=== PATIENT | female | born 1985 | race Caucasian/White ===

== ENCOUNTER 2017-01-02 20:41 | Emergency (ER) | payer MEDICAID, OTHER ==
[~2017-01-02 20:41] MED LIST: Z.0.NO CURRENT MEDS
[2017-01-02] MEDS ORDERED: IOHEXOL 350 MG/ML 10 ML VIAL (for RAD DIAG) IVCONTRAST ONE (20:42)
[2017-01-02 20:43] VITALS: BP 156/93; PULSE 123; RESP 16; TEMP 99; O2SAT 96
[2017-01-02] MEDS ORDERED: PANTOPRAZOLE INJ 80 MG in SODIUM CHLORIDE 0.9% INJ 100 ML IV SCH (21:28)
[2017-01-02] MEDS ORDERED: PANTOPRAZOLE INJ 80 MG in SODIUM CHLORIDE 0.9% INJ 35 ML IV ONE (21:28)
[2017-01-02] MEDS ORDERED: SODIUM CHLORIDE 0.9% FLUSH 10 ML FLUSH IVF PRN (21:30)
--- NOTE | 2017-01-02 21:43 | PD ---
HPI . Rectal bleeding Chief Complaint: GI Complaint Time Seen by Provider: 21:28 Travel History International Travel<30 days: No Contact w/Intl Traveler<30days: No Traveled to known affect area: No History of Present Illness HPI This patient presents with for evaluation of rectal bleeding. The patient reports that she has had intermittent problems since 2009. She was seen a couple of months ago by Dr. Nelson for routine LOAN SERVICING SPECIALIST care. She mentioned the rectal bleeding to Dr. Nelson who did a rectal exam and found no blood. The patient states that she was at a soccer game tonight when blood started pouring out of her rectum. She states that she does feel a bit weak and dizzy now. She denies any associated abdominal pain. She denies any hematemesis. She has not been running a fever. She is unaware of any causative factor. She states that the bleeding was severe. PFSH Past Medical History Inguinal Hernia: Yes Reproductive: Yes (endometriosis) Integumentary: Yes (MRSA) ?: Not LMP: "2 MONTHS", MIRENA : 3 Para: 3 Past Surgical History Abdominal Surgery: Yes (hernia repair) Gynecologic Surgery: Yes (LAPROSCOPY) Social History Alcohol Use: No Tobacco Use: No Substance Use: No (STATES "I'M IN RECOVERY") Allergies-Medications (Allergen,Severity, Reaction): Coded Allergies: ciprofloxacin (Unverified Allergy, Mild, HIVES, 01/02/17) Uncoded Allergies: NARCOTICS (Adverse Reaction, Unknown, 05/26/10) DOES NOT WISH TO RECEIVE NARCOTICS-STATES "I'M IN RECOVERY" Reported Meds & Prescriptions Reported Meds & Active Scripts Active No Active Prescriptions or Reported Medications Review of Systems Except as stated in HPI: all other systems reviewed are Neg General / Constitutional: No: Fever, Chills HENT: Positive: Lightheadedness, No: Headaches Cardiovascular: No: Chest Pain or Discomfort Respiratory: No: Shortness of Breath Gastrointestinal: Positive: Hematochezia, No: Nausea, Vomiting, Abdominal Pain Genitourinary: No: Urgency, Frequency, Dysuria Physical Exam Narrative GENERAL: Pleasant, healthy-appearing young woman in no acute distress. SKIN: warm/dry. HEAD: Normocephalic. Atraumatic. EYES: Pupils equal and round. No scleral icterus. No injection or drainage. ENT: No nasal bleeding or discharge. Mucous membranes pink and moist. NECK: Trachea midline. Full range of motion without pain.. CARDIOVASCULAR: Regular rate and rhythm. Heart sounds are normal. RESPIRATORY: No accessory muscle use. Clear to auscultation. Breath sounds equal bilaterally. GASTROINTESTINAL: Abdomen soft. Nontender. Bowel sounds present. Nondistended. RECTAL: Gross blood on her anus. MUSCULOSKELETAL: No obvious deformities. NEUROLOGICAL: Awake and alert. No obvious cranial nerve deficits. Motor grossly within normal limits. Normal speech. PSYCHIATRIC: Appropriate mood and affect; insight and judgment normal. Data Data Last Documented VS Vital Signs Date Time Temp Pulse Resp B/P (MAP) Pulse Ox O2 Delivery O2 Flow Rate FiO2 01/02/17 20:43 99.0 123 16 156/93 (114) 96 Room Air Orders Orders Basic Metabolic Panel (Bmp) (01/02/17 21:28) Complete Blood Count With Diff (01/02/17 21:28) Prothrombin Time / Inr (Pt) (01/02/17 21:28) Act Partial Throm Time (Ptt) (01/02/17 21:28) Type And Screen (01/02/17 21:28) Iv Access Insert/Monitor (01/02/17 21:28) Sodium Chloride 0.9% Flush (Ns Flush) (01/02/17 21:30) Sodium Chloride 0.9... W/Pantoprazole In (01/02/17 21:28) Sodium Chloride 0.9... W/Pantoprazole In (01/02/17 21:28) Ct Abd/Pel W Iv Contrast(Rout) (01/02/17 21:28) Consult Obstetrics (01/02/17 ) (Hub Use Only)Inp Phy Cons/Ref (01/02/17 ) Iohexol 350 Inj (Omnipaque 350 Inj) (01/02/17 20:42) Labs Laboratory Tests Test 01/02/17 21:45 White Blood Count 7.9 TH/MM3 Red Blood Count 4.49 MIL/MM3 Hemoglobin 13.8 GM/DL Hematocrit 40.4 % Mean Corpuscular Volume 90.0 FL Mean Corpuscular Hemoglobin 30.8 PG Mean Corpuscular Hemoglobin Concent 34.2 % Red Cell Distribution Width 13.3 % Platelet Count 196 TH/MM3 Mean Platelet Volume 9.8 FL Neutrophils (%) (Auto) 59.5 % Lymphocytes (%) (Auto) 30.5 % Monocytes (%) (Auto) 8.5 % Eosinophils (%) (Auto) 0.9 % Basophils (%) (Auto) 0.6 % Neutrophils # (Auto) 4.7 TH/MM3 Lymphocytes # (Auto) 2.4 TH/MM3 Monocytes # (Auto) 0.7 TH/MM3 Eosinophils # (Auto) 0.1 TH/MM3 Basophils # (Auto) 0.0 TH/MM3 CBC Comment DIFF FINAL Differential Comment Prothrombin Time 11.5 SEC Prothromb Time International Ratio 1.0 RATIO Activated Partial Thromboplast Time 26.4 SEC Blood Urea Nitrogen 8 MG/DL Creatinine 0.71 MG/DL Random Glucose 81 MG/DL Calcium Level 9.0 MG/DL Sodium Level 139 MEQ/L Potassium Level 3.8 MEQ/L Chloride Level 102 MEQ/L Carbon Dioxide Level 28.4 MEQ/L Anion Gap 9 MEQ/L Estimat Glomerular Filtration Rate 95 ML/MIN MDM Medical Decision Making Medical Screen Exam Complete: Yes Emergency Medical Condition: Yes Differential Diagnosis Differential diagnosis includes but is not limited to hemorrhoid, diverticulitis , cancer, coagulopathy Narrative Course This patient presents for evaluation of profound rectal bleeding. She was met here by Dr. Nelson. Dr. Nelson would like patient to be admitted to medicine with consults to her to GI. CT abd/pelvis: 1. The bowel appears normal. 2. 3.5 cm cyst of the left adnexa likely related to left ovarian cyst. CBC Diagram 01/02/17 21:45 Coags are normal. The patient's initial heart rate is recorded at 123. Repeat heart rate was 90. Physician Communication Physician Communication Dr. Leslie Salcido. Dr. Salcido says that this patient does not meet inpatient criteria. [facility] can follow her up tomorrow. Diagnosis Primary Impression: Rectal bleeding Patient Instructions: General Instructions, Rectal Bleeding (DC) Scripts No Active Prescriptions or Reported Meds Disposition: 01 DISCHARGE HOME Condition: Stable Mary Paz MD Jan 02, 2017 21:43
[2017-01-02 22:42] LABS: AUTOMATED NEUTROPHIL # 4.7 TH/MM3 (1.8-7.7); BASOPHIL % 0.6 % (0.0-2.0); EOSINOPHIL # 0.1 TH/MM3 (0-0.4); EOSINOPHIL % 0.9 % (0.0-4.0); HEMATOCRIT 40.4 % (35.0-46.0); HEMO FLAGS DIFF FINAL; LYMPH % 30.5 % (9.0-44.0); LYMPHOCYTE # 2.4 TH/MM3 (1.0-4.8); MEAN CORPUSCULAR HEMOGLOBIN 30.8 PG (27.0-34.0); MEAN CORPUSCULAR HGB CONC 34.2 % (32.0-36.0); MONO % 8.5 % (0.0-8.0); NEUT % 59.5 % (16.0-70.0); PLATELET COUNT 196 TH/MM3 (150-450); RED BLOOD COUNT 4.49 MIL/MM3 (4.00-5.30); RED CELL DISTRIBUTION WIDTH 13.3 % (11.6-17.2); WHITE BLOOD COUNT 7.9 TH/MM3 (4.0-11.0)
[2017-01-02 22:55] LABS: APTT (PATIENT) 26.4 SEC (24.3-30.1); PROTHROMBIN TIME - PATIENT 11.5 SEC (9.8-11.6)
--- NOTE | 2017-01-02 23:00 | RADRPT ---
EXAM DATE/TIME: 01/02/2017 22:23 [place] COMPARISON: No previous studies available for comparison. INDICATIONS : Blood in stool today. IV CONTRAST: 80 cc Omnipaque 350 (iohexol) IV ORAL CONTRAST: No oral contrast ingested. RADIATION DOSE: 5.62 CTDIvol (mGy) MEDICAL HISTORY : Hernia, inguinal. Endometriosis. SURGICAL HISTORY : Hernia repair. ENCOUNTER: Initial ACUITY: 1 day PAIN SCALE: 0/10 LOCATION: lower quadrant TECHNIQUE: Volumetric scanning of the abdomen and pelvis was performed. Using automated exposure control and ad justment of the mA and/or kV according to patient size, radiation dose was kept as low as reasonably achievable to obtain optimal diagnostic quality images. DICOM format image data is available electro nically for review and comparison. FINDINGS: LOWER LUNGS: The visualized lower lungs are clear. LIVER: Homogeneous density without lesion. There is no dilation of the biliary tree. No calcified gallston es. SPLEEN: Normal size without lesion. PANCREAS: Within normal limits. KIDNEYS: Normal in size and shape. There is no mass, stone or hydronephrosis. ADRENAL GLANDS: Within normal limits. VASCULAR: There is no aortic aneurysm. BOWEL/MESENTERY: The stomach, small bowel, and colon demonstrate no acute abnormality. There is no free intraperitone al air or fluid. ABDOMINAL WALL: Within normal limits. RETROPERITONEUM: There is no lymphadenopathy. BLADDER: No wall thickening or mass. REPRODUCTIVE: There is a T-shaped IUD in place. There is a 3.5 cm left anterior pelvis likely related to a left ova esther cyst. INGUINAL: There is no lymphadenopathy or hernia. MUSCULOSKELETAL: Within normal limits for patient age. CONCLUSION: 1. The bowel appears normal. 2. 3.5 cm cyst of the left adnexa likely related to left ovarian cyst. Bj Stanley MD on January 02, 2017 at 22:56 Board Certified Radiologist. This report was verified electronically.
[2017-01-02 23:24] LABS: BICARBONATE 28.4 MEQ/L (21.0-32.0); POTASSIUM 3.8 MEQ/L (3.5-5.1)
[2017-01-03] VITALS: BP 124/82; PULSE 86; RESP 18; O2SAT 100
[2017-01-03] MEDS ORDERED: TRYP500T (09:44)
[2017-01-04] MEDS ORDERED: ANUS25SU RECTAL (16:20)
== END 2017-01-03 00:41 | disposition home or self-care (01) ==
LOC: NEPE 20:41
DX: K62.5 Hemorrhage of anus and rectum (principal); N83.202 Unspecified ovarian cyst, left side
CPT/HCPCS: 74177; 80048; 85025; 85610; 85730; 86850; 86900; 86901; 96365; 96366; 99285; C9113; Q9967

== ENCOUNTER 2017-01-03 09:28 | Observation (INO) | payer OTHER, MEDICAID ==
[2017-01-03] VITALS (7 sets, daily range): BP systolic 108–147; BP diastolic 57–95; PULSE 70–83; RESP 17–19; TEMP 98–98.9; O2SAT 98–100
[~2017-01-03] VITALS: Ht 165.1 cm; Wt 65.0 kg
[2017-01-03] MEDS ORDERED: TRYP500T (09:44)
--- NOTE | 2017-01-03 10:09 | PD ---
HPI Chief Complaint: GI Complaint Time Seen by Provider: 09:44 Travel History International Travel<30 days: No Contact w/Intl Traveler<30days: No Traveled to known affect area: No History of Present Illness HPI 31yo F with PMH of hemorrhoids presents to the ED after episode of rectal bleeding this morning. Pt has had intermittent rectal bleeding for a few years and states that she had episode of rectal bleeding that was profuse yesterday and this morning. Pt came to [place] ED for evaluation of rectal bleeding yesterday and had full work up with normal blood work and CT a/p that showed normal bowels and a left adnexal cyst. Pt called her POWER GENERATION ENGINEER Dr. Nelson and she wanted her admitted to medicine but Dr. Salcido said she did not meet inpatient criteria. Pt called Dr. Nelson after the rectal bleeding today again and was told to come to the ED. Pt states she has some dizziness as well as left lower abdominal pain. Denies any fever, chest pain, sob, n/v, vaginal bleeding or discharge. PFSH Past Medical History Inguinal Hernia: Yes Reproductive: Yes (endometriosis) Integumentary: Yes (MRSA) Influenza Vaccination: No ?: Not LMP: 2 MONTHS AGO - ON MIRENA : 3 Para: 3 Past Surgical History Abdominal Surgery: Yes (hernia repair) Gynecologic Surgery: Yes (LAPROSCOPY) Social History Alcohol Use: No Tobacco Use: No Substance Use: No (STATES "I'M IN RECOVERY") Allergies-Medications (Allergen,Severity, Reaction): Coded Allergies: ciprofloxacin (Unverified Allergy, Mild, HIVES, 01/03/17) Uncoded Allergies: NARCOTICS (Adverse Reaction, Unknown, 05/26/10) DOES NOT WISH TO RECEIVE NARCOTICS-STATES "I'M IN RECOVERY" Reported Meds & Prescriptions Reported Meds & Active Scripts Active Reported l-Tryptophan (Tryptophan) 500 Mg Tab Review of Systems Except as stated in HPI: all other systems reviewed are Neg Physical Exam Narrative GENERAL: 31yo F not in distress. SKIN: Focused skin assessment warm/dry. HEAD: Atraumatic. Normocephalic. CARDIOVASCULAR: Regular rate and rhythm. No murmur appreciated. RESPIRATORY: No accessory muscle use. Clear to auscultation. Breath sounds equal bilaterally. GASTROINTESTINAL: Abdomen soft, +LLQ ttp. No rebound tenderness or guarding. MUSCULOSKELETAL: No obvious deformities. No clubbing. No cyanosis. No edema. RECTAL: No hemorrhoids palpated. Red dried blood with positive hemaprompt. NEUROLOGICAL: Awake and alert. No obvious cranial nerve deficits. Motor grossly within normal limits. Normal speech. PSYCHIATRIC: Appropriate mood and affect; insight and judgment normal. Data Data Last Documented VS Vital Signs Date Time Temp Pulse Resp B/P (MAP) Pulse Ox O2 Delivery O2 Flow Rate FiO2 01/03/17 12:14 98.3 72 17 123/63 (83) 99 Room Air Orders Orders Complete Blood Count With Diff (01/03/17 10:00) Basic Metabolic Panel (Bmp) (01/03/17 10:00) Electrocardiogram (01/03/17 ) Orthostatic Vital Signs (01/03/17 10:00) Ed Urine Pregnancytest Poc (01/03/17 10:01) Urinalysis - C+S If Indicated (01/03/17 10:01) Ketorolac Inj (Toradol Inj) (01/03/17 10:15) Admit Order (Ed Use Only) (01/03/17 12:44) Consult Gastroenterology (01/03/17 ) Labs Laboratory Tests Test 01/03/17 10:35 White Blood Count 4.9 TH/MM3 Red Blood Count 4.57 MIL/MM3 Hemoglobin 14.2 GM/DL Hematocrit 41.3 % Mean Corpuscular Volume 90.4 FL Mean Corpuscular Hemoglobin 31.0 PG Mean Corpuscular Hemoglobin Concent 34.3 % Red Cell Distribution Width 13.4 % Platelet Count 170 TH/MM3 Mean Platelet Volume 9.4 FL Neutrophils (%) (Auto) 49.3 % Lymphocytes (%) (Auto) 39.4 % Monocytes (%) (Auto) 9.0 % Eosinophils (%) (Auto) 1.6 % Basophils (%) (Auto) 0.7 % Neutrophils # (Auto) 2.4 TH/MM3 Lymphocytes # (Auto) 1.9 TH/MM3 Monocytes # (Auto) 0.4 TH/MM3 Eosinophils # (Auto) 0.1 TH/MM3 Basophils # (Auto) 0.0 TH/MM3 CBC Comment DIFF FINAL Differential Comment Urine Color LIGHT-YELLOW Urine Turbidity HAZY Urine pH 7.0 Urine Specific [place] 1.009 Urine Protein NEG mg/dL Urine Glucose (UA) NEG mg/dL Urine Ketones NEG mg/dL Urine Occult Blood NEG Urine Nitrite NEG Urine Bilirubin NEG Urine Urobilinogen LESS THAN 2.0 MG/DL Urine Leukocyte Esterase NEG Urine RBC LESS THAN 1 /hpf Urine WBC 1 /hpf Urine Squamous Epithelial Cells 7 /hpf Urine Bacteria OCC /hpf Microscopic Urinalysis Comment CULT NOT INDICATED Blood Urea Nitrogen 8 MG/DL Creatinine 0.76 MG/DL Random Glucose 84 MG/DL Calcium Level 8.7 MG/DL Sodium Level 139 MEQ/L Potassium Level 3.9 MEQ/L Chloride Level 104 MEQ/L Carbon Dioxide Level 29.2 MEQ/L Anion Gap 6 MEQ/L Estimat Glomerular Filtration Rate 88 ML/MIN [facility] Medical Decision Making Medical Screen Exam Complete: Yes Emergency Medical Condition: Yes Interpretation(s) EKG: NSR 84bpm. Normal axis. No ST segment elevation or depression. Differential Diagnosis Rectal bleeding from hemorrhoid vs. AVM vs. Crohns disease vs. ulcerative colitis vs. colonic polyps Narrative Course 31yo F with episodes of rectal bleeding. Dr. Nelson came to see the patient who is well known to her in the ED. She had spoken to GI Dr. Foley who plans to do colonoscopy today. Will discuss with Dr. Foley when blood results comes back. Lab's reviewed, no leukocytosis. H/H stable at 14.2/41.3. BMP unremarkable. UA negative with WBC 1. culture not indicated. Discussed with Dr. Foley's HOSPICE ADMITTING CLERK who came to see patient in the ED and plan is to admit for observation, do bowel prep and colonoscopy tomorrow. Discussed with Dr. Antonio who accepted her to his service. [facility] Point of Care Internal Pos. & Neg. Controls: Passed Fecal Specimen Occult Blood: Positive Diagnosis Primary Impression: GI bleed Qualified Codes: K92.2 - Gastrointestinal hemorrhage, unspecified Admitting Information Admitting Physician Requests: Observation Janelle Suarez DO Jan 03, 2017 10:09
[2017-01-03] MEDS ORDERED: KETOROLAC TROMETHAMINE 30 MG/ML (IVP) VIAL IV PUSH ONE (10:15)
[2017-01-03 11:02] LABS: AUTOMATED NEUTROPHIL # 2.4 TH/MM3 (1.8-7.7); BASOPHIL % 0.7 % (0.0-2.0); EOSINOPHIL # 0.1 TH/MM3 (0-0.4); EOSINOPHIL % 1.6 % (0.0-4.0); HEMATOCRIT 41.3 % (35.0-46.0); HEMO FLAGS DIFF FINAL; LYMPH % 39.4 % (9.0-44.0); LYMPHOCYTE # 1.9 TH/MM3 (1.0-4.8); MEAN CELL VOLUME 90.4 FL (80.0-100.0); MEAN CORPUSCULAR HGB CONC 34.3 % (32.0-36.0); NEUT % 49.3 % (16.0-70.0); PLATELET COUNT 170 TH/MM3 (150-450); RED BLOOD COUNT 4.57 MIL/MM3 (4.00-5.30); RED CELL DISTRIBUTION WIDTH 13.4 % (11.6-17.2); WHITE BLOOD COUNT 4.9 TH/MM3 (4.0-11.0)
[2017-01-03 11:05] LABS: BACTERIA, URINE OCC /hpf; BLOOD, URINE NEG (NEG); COMMENT (UR) CULT NOT INDICATED; CULTURE IF INDICATED CULT NOT INDICATED; GLUCOSE,URINE NEG (NEG); KETONE, URINE NEG (NEG); NITRITE,URINE NEG (NEG); SQUAMOUS EPITHELIAL CELL URINE 7 /hpf (0-5); URINE COLOR LIGHT-YELLOW (YELLW/STRAW)
[2017-01-03 11:15] LABS: BICARBONATE 29.2 MEQ/L (21.0-32.0); POTASSIUM 3.9 MEQ/L (3.5-5.1)
--- NOTE | 2017-01-03 12:35 | PD.CONS ---
HPI History of Present Illness This is a 31 year old female patient who presented to the emergency room for evaluation of rectal bleeding. She reports that she has had intermittent rectal bleeding since she "became clean in 2009." She reports that she does have a history of hemorrhoids and sometimes the bleeding occurs with bowel movements, but at other times it occurs independently from bowel movements- sometimes with urination and sometimes with exercising. Sometimes she will use coconut oils applied topically to her rectal area, but usually the bleeding will resolve on its own. She reports that in 2009, she did have some hematemesis, but she was incarcerated at the time and states that they placed her on Nexium and she did not have any follow up care with a trim and burr operator. She has never had an EGD or colonoscopy. She reports that about 5 years ago, she had an episode of a large amount of rectal bleeding. She was seen in the ER in [facility] and was told that she needed to follow up with GI as outpatient for colonoscopy, but states that she did not have insurance at the time and therefore was not able to follow up. This current episode started suddenly and consisted of a large amount of rectal bleeding while she was at her child's soccer game. She reports that it was a large amount that completely soiled her pants. She denies any nausea/vomiting. Initially she did not have pain, but reports that she has been having a pain in her LLQ. She was given an antiinflammatory and states that it is now just sore. She denies any constipation or diarrhea. She does have the feeling that she has to move her bowels with pressure, but states she will sit on the toilet for a long time and not actually go. She denies any decreased appetite, but states her weight has fluctuated 15 lbs up and down monthly. She has tried changing her eating habits but has not had any improvement. She does not know her family hx. (Selma Arceo) [facility] Past Medical History Endometriosis Rectal bleeding Hematemesis in 2009 Past Surgical History Laparoscopy Inguinal hernia repair (Selma Arceo) Coded Allergies: ciprofloxacin (Unverified Allergy, Mild, HIVES, 01/03/17) Uncoded Allergies: NARCOTICS (Adverse Reaction, Unknown, 05/26/10) DOES NOT WISH TO RECEIVE NARCOTICS-STATES "I'M IN RECOVERY" Medications Allergies Coded Allergies Type Severity Reaction Last Updated Verified ciprofloxacin Allergy Mild HIVES 01/03/17 No Uncoded Allergies Type Severity Reaction Last Updated Verified NARCOTICS Adverse Reaction Unknown 05/26/10 Active Scripts Medications Dose Route/Sig Max Daily Dose Days Date Category l-Tryptophan (Tryptophan) 500 Mg Tab 01/03/17 Reported Family History Does not know her family hx Social History Quit smoking 6 years ago. No ETOH use. Past drug abuse, quit in 2009, but denies any history of IVDA (Selma Arceo) Review of Systems Constitutional: COMPLAINS OF: Weight gain, Weight loss, DENIES: Fever, Chills, Change in appetite Respiratory: DENIES: Cough Cardiovascular: DENIES: Chest pain Gastrointestinal: COMPLAINS OF: Abdominal pain, Bloody stools (rectal bleeding) , DENIES: Black stools, Constipation, Diarrhea, Nausea, Vomiting Musculoskeletal: DENIES: Back pain Integumentary: DENIES: Abnormal pigmentation Hematologic/lymphatic: DENIES: Bruising Neurologic: DENIES: Headache Psychiatric: DENIES: Confusion (Selma Arceo) GI Exam Vitals I&O Vital Signs Date Time Temp Pulse Resp B/P (MAP) Pulse Ox O2 Delivery O2 Flow Rate FiO2 01/03/17 12:14 98.3 72 17 123/63 (83) 99 Room Air 01/03/17 10:41 76 19 114/71 (85) 82 19 139/82 (101) 88 19 126/75 (92) 01/03/17 09:44 18 01/03/17 09:30 98.0 83 18 147/82 (103) 100 Room Air Laboratory Test 01/03/17 10:35 White Blood Count 4.9 TH/MM3 Red Blood Count 4.57 MIL/MM3 Hemoglobin 14.2 GM/DL Hematocrit 41.3 % Mean Corpuscular Volume 90.4 FL Mean Corpuscular Hemoglobin 31.0 PG Mean Corpuscular Hemoglobin Concent 34.3 % Red Cell Distribution Width 13.4 % Platelet Count 170 TH/MM3 Mean Platelet Volume 9.4 FL Neutrophils (%) (Auto) 49.3 % Lymphocytes (%) (Auto) 39.4 % Monocytes (%) (Auto) 9.0 % Eosinophils (%) (Auto) 1.6 % Basophils (%) (Auto) 0.7 % Neutrophils # (Auto) 2.4 TH/MM3 Lymphocytes # (Auto) 1.9 TH/MM3 Monocytes # (Auto) 0.4 TH/MM3 Eosinophils # (Auto) 0.1 TH/MM3 Basophils # (Auto) 0.0 TH/MM3 CBC Comment DIFF FINAL Differential Comment Urine Color LIGHT-YELLOW Urine Turbidity HAZY Urine pH 7.0 Urine Specific [place] 1.009 Urine Protein NEG mg/dL Urine Glucose (UA) NEG mg/dL Urine Ketones NEG mg/dL Urine Occult Blood NEG Urine Nitrite NEG Urine Bilirubin NEG Urine Urobilinogen LESS THAN 2.0 MG/DL Urine Leukocyte Esterase NEG Urine RBC LESS THAN 1 /hpf Urine WBC 1 /hpf Urine Squamous Epithelial Cells 7 /hpf Urine Bacteria OCC /hpf Microscopic Urinalysis Comment CULT NOT INDICATED Blood Urea Nitrogen 8 MG/DL Creatinine 0.76 MG/DL Random Glucose 84 MG/DL Calcium Level 8.7 MG/DL Sodium Level 139 MEQ/L Potassium Level 3.9 MEQ/L Chloride Level 104 MEQ/L Carbon Dioxide Level 29.2 MEQ/L Anion Gap 6 MEQ/L Estimat Glomerular Filtration Rate 88 ML/MIN Physical Examination HEENT: Normocephalic; atraumatic; no jaundice. CHEST: CTA CARDIAC: RRR ABDOMEN: Soft, nondistended, nontender; no hepatosplenomegaly; bowel sounds are present in all four quadrants. EXTREMITIES: No clubbing, cyanosis, or edema. SKIN: Normal; no rash; no jaundice. GOLD CHARMER: No focal deficits; alert and oriented times three. (Selma Arceo) Assessment and Plan Plan ASSESSMENT: - Rectal bleeding. Pt has had this intermittently since 2009. She has never had egd/colonoscopy. She does have a hx of a hemorrhoid, but denies any constipation/diarrhea/straining. She had sudden onset of rectal bleeding with large amount of rectal bleeding independent from stool yesterday while at her child's soccer game. She went to the ER, but did not meet inpatient criteria, as her HH had remained stable and she was hemodynamically stable. She was discharged home with instructions to follow up with GI. However, when she woke up this morning, she had another episode of rectal bleeding with large amount of red blood and therefore she contacted her WINDLACE MACHINE OPERATOR physician, who instructed her to return to the ER. (+) rectal pressure, tenesmus. Does not know family hx. Will prep patient today and plan for colonoscopy in am. HH Stable. PLAN: - Plan for colonoscopy in am - Obtain consents - Clear liquids - NPO after MN - Golytely prep - CBC in am - Supportive care - Further recommendations to follow based on results of above - Pt seen and examined by Dr. Foley and myself and this note is written on her behalf (Selma Arceo) Physician Comments seen, examined agree with above she has a history of endometriosis, currently on treatment developed pain in llq for 1 day, never had that before rectal examination-no external hemorrhoids (Zuleika Foley MD) Selma Arceo Jan 03, 2017 12:35 Zuleika Foley MD Jan 03, 2017 18:40
--- NOTE | 2017-01-03 15:46 | HHI.HP ---
HPI Service CP Hospitalists Primary Care Physician No Primary Care Physician Admission Diagnosis GI bleed Chief Complaint: rectal bleeding Travel History International Travel<30 Days: No Contact w/Intl Traveler <30 Da: No Traveled to Known Affected Are: No History of Present Illness This is a 31 year old female patient with a past medical history which includes endometriosis and intermittent rectal bleeding which began in 2009. Patient reports that she was seen in the ER in [facility] and was told that she needed to follow up with GI as outpatient for colonoscopy, but states that she did not have insurance at the time and therefore was not able to follow up. Patient reports that yesterday evening while at her son's soccer game she had uncontrollable rectal bleeding which soiled her pants with bright red blood. Patient again had an episode of rectal bleeding this morning when she sat down on the toilet of bright red blood. She denies any nausea/vomiting. Initially she did not have pain, but reports that she has been having a pain in her LLQ. She denies any constipation or diarrhea. Patient reports the rectal bleeding does not seem to occur with bowel movements. She denies any decreased appetite , but states her weight has fluctuated 15 lbs up and down monthly. Patient denies palpitations, feeling dizzy, lightheaded, chest pain or shortness of breath. Review of Systems Constitutional: DENIES: Fatigue, Fever, Chills Respiratory: DENIES: Cough, Sputum production, Shortness of breath Cardiovascular: DENIES: Chest pain, Palpitations, Dyspnea on Exertion Gastrointestinal: COMPLAINS OF: Abdominal pain, BRB per rectum, DENIES: Constipation, Diarrhea, Nausea, Vomiting Genitourinary: COMPLAINS OF: Abnormal vaginal bleeding (endometriosis currently on Mirena) Hematologic/lymphatic: DENIES: Bruising, Lymphadenopathy Neurologic: DENIES: Abnormal gait, Headache, Localized weakness, Speech Problems Psychiatric: DENIES: Anxiety, Confusion, Depression Past Family Social History Past Medical History Endometriosis Rectal bleeding Hematemesis in 2009 Past Surgical History Laparoscopy Inguinal hernia repair Reported Medications l-Tryptophan (Tryptophan) 500 Mg Tab Allergies: Coded Allergies: ciprofloxacin (Unverified Allergy, Mild, HIVES, 01/03/17) Uncoded Allergies: NARCOTICS (Adverse Reaction, Unknown, 05/26/10) DOES NOT WISH TO RECEIVE NARCOTICS-STATES "I'M IN RECOVERY" Active Ordered Medications Current Medications Medications (Trade) Dose Ordered Sig/Layla Route Start Time Stop Time Status Last Admin (Colyte Liq) 4,000 ml ONCE ONCE PO 01/03/17 16:00 01/03/17 16:01 Family History Does not know her family hx Social History Quit smoking 6 years ago. No ETOH use. Past drug abuse, quit in 2009, but denies any history of IVDA Physical Exam Vital Signs Vital Signs Date Time Temp Pulse Resp B/P (MAP) Pulse Ox O2 Delivery O2 Flow Rate FiO2 01/03/17 15:06 98.6 70 18 108/57 (74) 100 01/03/17 14:31 80 18 127/95 (106) 99 01/03/17 12:14 98.3 72 17 123/63 (83) 99 Room Air 01/03/17 10:41 76 19 114/71 (85) 82 19 139/82 (101) 88 19 126/75 (92) 01/03/17 09:44 18 01/03/17 09:30 98.0 83 18 147/82 (103) 100 Room Air Physical Exam GENERAL: This is a well-nourished, well-developed patient, in no apparent distress. EYES:Extraocular motions intact. No scleral icterus. No injection or drainage. CARDIOVASCULAR: Regular rate and rhythm without murmurs, gallops, or rubs. RESPIRATORY: Clear to auscultation. Breath sounds equal bilaterally. No wheezes , rales, or rhonchi. GASTROINTESTINAL: Abdomen soft, tender left lower quadrant, nondistended. MUSCULOSKELETAL: Extremities without clubbing, cyanosis, or edema. No joint tenderness, effusion, or edema noted. No calf tenderness. Negative Homans sign bilaterally. NEUROLOGICAL: Awake and alert. No focal deficits showed. Motor and sensory grossly within normal limits. Five out of 5 muscle strength in all muscle groups. Normal speech. Laboratory Laboratory Tests Test 01/03/17 10:35 White Blood Count 4.9 Red Blood Count 4.57 Hemoglobin 14.2 Hematocrit 41.3 Mean Corpuscular Volume 90.4 Mean Corpuscular Hemoglobin 31.0 Mean Corpuscular Hemoglobin Concent 34.3 Red Cell Distribution Width 13.4 Platelet Count 170 Mean Platelet Volume 9.4 Neutrophils (%) (Auto) 49.3 Lymphocytes (%) (Auto) 39.4 Monocytes (%) (Auto) 9.0 Eosinophils (%) (Auto) 1.6 Basophils (%) (Auto) 0.7 Neutrophils # (Auto) 2.4 Lymphocytes # (Auto) 1.9 Monocytes # (Auto) 0.4 Eosinophils # (Auto) 0.1 Basophils # (Auto) 0.0 CBC Comment DIFF FINAL Differential Comment Urine Color LIGHT-YELLOW Urine Turbidity HAZY Urine pH 7.0 Urine Specific [place] 1.009 Urine Protein NEG Urine Glucose (UA) NEG Urine Ketones NEG Urine Occult Blood NEG Urine Nitrite NEG Urine Bilirubin NEG Urine Urobilinogen LESS THAN 2.0 Urine Leukocyte Esterase NEG Urine RBC LESS THAN 1 Urine WBC 1 Urine Squamous Epithelial Cells 7 Urine Bacteria OCC Microscopic Urinalysis Comment CULT NOT INDICATED Blood Urea Nitrogen 8 Creatinine 0.76 Random Glucose 84 Calcium Level 8.7 Sodium Level 139 Potassium Level 3.9 Chloride Level 104 Carbon Dioxide Level 29.2 Anion Gap 6 Estimat Glomerular Filtration Rate 88 Result Diagram: 01/03/17 1035 01/03/17 1035 Caprini VTE Risk Assessment Caprini VTE Risk Assessment: No/Low Risk (score <= 1) Caprini Risk Assessment Model Point Value = 1 Point Value = 2 Point Value = 3 Point Value = 5 Age 41-60 Minor surgery BMI > 25 kg/m2 Swollen legs Varicose veins or History of unexplained or recurrent spontaneous Oral contraceptives or hormone replacement Sepsis (< 1 month) Serious lung disease, including pneumonia (< 1 month) Abnormal pulmonary function Acute myocardial infarction Congestive heart failure (< 1 month) History of inflammatory bowel disease Medical patient at bed rest Age 61-74 Arthroscopic surgery Major open surgery (> 45 min) Laparoscopic surgery (> 45 min) Malignancy Confined to bed (> 72 hours) Immobilizing plaster cast Central venous access Age >= 75 History of VTE Family history of VTE Factor V Leiden Prothrombin [id number] Lupus anticoagulant Anticardiolipin antibodies Elevated serum homocysteine Heparin-induced thrombocytopenia Other congenital or acquired thrombophilia Stroke (< 1 month) Elective arthroplasty Hip, pelvis, or leg fracture Acute spinal cord injury (< 1 month) Prophylaxis Regimen Total Risk Factor Score Risk Level Prophylaxis Regimen 0-1 Low Early ambulation 2 Moderate Order ONE of the following: *Sequential Compression Device (SCD) *Heparin 5000 units SQ BID 3-4 Higher Order ONE of the following medications: *Heparin 5000 units SQ TID *Enoxaparin/Lovenox 40 mg SQ daily (WT < 150 kg, CrCl > 30 mL/min) *Enoxaparin/Lovenox 30 mg SQ daily (WT < 150 kg, CrCl > 10-29 mL/min) *Enoxaparin/Lovenox 30 mg SQ BID (WT < 150 kg, CrCl > 30 mL/min) AND/OR *Sequential Compression Device (SCD) 5 or more Highest Order ONE of the following medications: *Heparin 5000 units SQ TID (Preferred with Epidurals) *Enoxaparin/Lovenox 40 mg SQ daily (WT < 150 kg, CrCl > 30 mL/min) *Enoxaparin/Lovenox 30 mg SQ daily (WT < 150 kg, CrCl > 10-29 mL/min) *Enoxaparin/Lovenox 30 mg SQ BID (WT < 150 kg, CrCl > 30 mL/min) AND *Sequential Compression Device (SCD) Assessment and Plan Problem List: (1) GI bleed ICD Codes: K92.2 - Gastrointestinal hemorrhage, unspecified Status: Acute Plan: GI bleed This is a 31 year old female patient with intermitted rectal bleed since 2009. Patient has had two recent episodes of rectal bleeding. Occult stool positive in the ER hemoglobin on admission 14.2, recheck CBC in AM Consult GI plan colonoscopy in AM clear liquid diet now- NPO after midnight 1/2 NS 20 meq KCL at 84ml/H supportive care monitor DVT prophylaxis with SCDs- avoid chemical DVT prophylaxis due to GI bleed Assessment and Plan Patient examined. Assessment and plan formulated with Cristina Arroyo PA-C. I agree with the above. rectal bleeding acute on chronic GI consulted and c scope in AM. discussed various possibilities as the source with patient. currently stable. Cristina Arroyo Jan 03, 2017 15:46 Yo Antonio MD Jan 03, 2017 17:36
[2017-01-03] MEDS ORDERED: PEG (High)/E-LYTE SOLN 4000 ML BTL PO ONE (16:00)
[2017-01-03] MEDS ORDERED: ONDANSETRON HCL 4 MG/2 ML VIAL IVP PRN (17:45)
[2017-01-03] MEDS ORDERED: NALOXONE HCL 0.4 MG/ML AMP IV PUSH PRN (17:45)
[2017-01-03] MEDS ORDERED: ACETAMINOPHEN 325 MG TAB PO PRN (17:45)
[2017-01-03] MEDS: 1/2 NS + KCL 20 MEQ INJ 1,000 ML IV SCH (18:11)
[2017-01-03] MEDS: SODIUM CHLORIDE 0.9% FLUSH 10 ML FLUSH IV FLUSH SCH (20:27)
[2017-01-04 00:40] VITALS: BP 93/52; PULSE 71; RESP 18; TEMP 98.1; O2SAT 99
[2017-01-04 04:03] VITALS: BP 97/61; PULSE 75; RESP 17; TEMP 98.1; O2SAT 98
[2017-01-04 08:31] LABS: AUTOMATED NEUTROPHIL # 1.9 TH/MM3 (1.8-7.7); BASOPHIL # 0.1 TH/MM3 (0-0.2); BASOPHIL % 1.8 % (0.0-2.0); EOSINOPHIL # 0.1 TH/MM3 (0-0.4); EOSINOPHIL % 3.1 % (0.0-4.0); HEMATOCRIT 36.8 % (35.0-46.0); HEMO FLAGS DIFF FINAL; LYMPH % 44.7 % (9.0-44.0); MEAN CELL VOLUME 90.3 FL (80.0-100.0); MEAN CORPUSCULAR HEMOGLOBIN 30.6 PG (27.0-34.0); MEAN CORPUSCULAR HGB CONC 33.9 % (32.0-36.0); MONO % 6.7 % (0.0-8.0); NEUT % 43.7 % (16.0-70.0); PLATELET COUNT 154 TH/MM3 (150-450); RED BLOOD COUNT 4.08 MIL/MM3 (4.00-5.30); RED CELL DISTRIBUTION WIDTH 13.4 % (11.6-17.2); WHITE BLOOD COUNT 4.5 TH/MM3 (4.0-11.0)
[2017-01-04 08:59] LABS: ANION GAP 6 MEQ/L (5-15); AST (GOT) 19 U/L (15-37); BICARBONATE 25.9 MEQ/L (21.0-32.0); BLOOD UREA NITROGEN 7 MG/DL (7-18); CHLORIDE 106 MEQ/L (98-107); GLOMERULAR FILTRATION RATE 111 ML/MIN (>89); POTASSIUM 3.8 MEQ/L (3.5-5.1); SODIUM (NA) 138 MEQ/L (136-145)
[2017-01-04 09:00] LABS: ALT (GPT) 30 U/L (10-53)
[2017-01-04 09:02] LABS: ALKALINE PHOSPHATASE 31 U/L (45-117); TOTAL BILIRUBIN ADULT 0.6 MG/DL (0.2-1.0)
[2017-01-04] MEDS ORDERED: DO NOT ADM ANY ANTICOAGULANT DRUGS PRN (09:41)
--- NOTE | 2017-01-04 09:48 | GIPROC ---
[facility] [address] [facility]. [facility], [id number] COLONOSCOPY PROCEDURE REPORT EXAM DATE: 01/04/2017 PATIENT NAME: Adriana Peña MR #: [id number] BIRTHDATE: 1985 ENDOSCOPIST: Zuleika Foley MD ORDER #: [id number] MAP MAKER: Neetu Oden and Elvis Murphy STATUS: inpatient INDICATIONS: The patient is a 31 yr old female here for a colonoscopy due to bleeding PROCEDURE PERFORMED: Colonoscopy, diagnostic MEDICATIONS: None and Per Anesthesia. PREP QUALITY: good PREP TYPE:Other: ESTIMATED BLOOD LOSS: None CONSENT: The patient understands the risks and benefits of the procedure and understands that these risks include, but are not limited to: sedation, allergic reaction, infection, perforation and/or bleeding. Alternative means of evaluation and treatment include, among others: physical exam, x-rays, and/or surgical intervention. The patient elects to proceed with this endoscopic procedure. medical equipment was checked for proper function. Hand hygiene and appropriate measures for infection prevention was taken. After the risks, benefits and alternatives of the procedure were thoroughly explained, Informed consent was verified, confirmed and timeout was successfully executed by the treatment team. A digital exam was performed and revealed external hemorrhoids The Pentax [id number] endoscope was introduced through the anus and advanced to the cecum, which was identified by both the appendix and ileocecal valve. The instrument was then slowly withdrawn as the colon was fully examined. COLON FINDINGS: Few small diverticulae in sigmoid internal hemorrhoids -grade 2 -s/p thermal distructions using balltip. Retroflexed views revealed internal hemorrhoids and Retroflexed views revealed medium internal hemorrhoids The scope was then completely withdrawn from the patient and the procedure terminated. PROCEDURE WITHDRAWAL TIME:6minutes ADVERSE EVENTS: There were no complications. IMPRESSIONS: 1. Few small diverticulae in sigmoid internal hemorrhoids -grade 2 -s/p thermal distructions using balltip 2. Retroflexed views revealed internal hemorrhoids 3. Retroflexed views revealed medium internal hemorrhoids 4. Was performed 5. Revealed external hemorrhoids RECOMMENDATIONS: 1. Benefiber 2 tsp daily 2. Probiotics from any [employer] or health food store 3. Yearly rectal exams 4. Hydrocortisone supp if not better colorectal surgery eval for band ligation/surgery RECALL: Return 10 years Colonoscopy Zuleika Foley MD eSigned: Zuleika Foley MD 01/04/2017 9:47 AM cc:
[2017-01-04] MEDS: SODIUM CHLORIDE 0.9% FLUSH 10 ML FLUSH IV FLUSH SCH (10:00)
[2017-01-04] MEDS ORDERED: LIDOCAINE 4% CREAM 5 GM TUBE TOPICAL ONE (10:00)
[2017-01-04] MEDS ORDERED: PROPOFOL 200 MG/20 ML AMP IV ONE (12:00)
[2017-01-04] MEDS ORDERED: LIDOCAINE HCL 1% PF 5 ML AMPULE OTHER ONE (12:00)
[2017-01-04 12:08] VITALS: BP 119/66; PULSE 69; RESP 18; TEMP 95.7; O2SAT 95
[2017-01-04] MEDS ORDERED: HYDROCORTISONE ACETATE 25 MG SUPP RECTAL SCH ×2 (13:00→21:00)
[2017-01-04] MEDS: 1/2 NS + KCL 20 MEQ INJ 1,000 ML IV SCH (13:26)
--- NOTE | 2017-01-04 14:41 | EKG ---
Date Performed: 01/03/2017 Time Performed: 10:20:34 PTAGE: 31 years EKG: Sinus rhythm WITH SINUS ARRHYTHMIA BORDERLINE ECG NO PREVIOUS TRACING DOCTOR: Waylon Pino Interpretating Date/Time 01/04/2017 14:39:44
--- NOTE | 2017-01-04 15:13 | HHI.PR ---
Subjective Remarks s/p c scope. still bleeding after return to room Objective Vitals heart reg lung cta abd snt ext no edema Vital Signs Date Time Temp Pulse Resp B/P (MAP) Pulse Ox O2 Delivery O2 Flow Rate FiO2 01/04/17 12:08 95.7 69 18 119/66 (83) 95 01/04/17 10:05 69 14 95/52 (66) 99 Room Air 01/04/17 10:00 69 14 98/52 (67) 100 Room Air 01/04/17 09:43 97.7 75 14 93/50 (64) 99 Room Air 01/04/17 05:21 21 01/04/17 04:03 98.1 75 17 97/61 (73) 98 01/04/17 00:40 98.1 71 18 93/52 (66) 99 01/03/17 19:36 98.9 83 18 112/65 (81) 98 01/03/17 17:59 99 21 01/04/17 01/04/17 01/05/17 15:00 23:00 07:00 Intake Total 800 ml Balance 800 ml Other 800 ml Result Diagram: 01/04/17 0732 01/04/17 0732 A/P Problem List: (1) GI bleed ICD Codes: K92.2 - Gastrointestinal hemorrhage, unspecified Status: Acute Plan: rectal bleeding from int/ext hemorrhoids taken for c scope today. cauterized. pt returns to her room and still dripping alot of blood w/out warning. She says it is disrupting her life and with 4 kids... ..the bleeding is brisk and again occurs w/out warning. spoke to Dr Foley and Dr Acosta. He will come by to see her after surgery today and decide if there is any surgical intervention that can resolve this problem. HC supp ordered. Yo Antonio MD Jan 04, 2017 15:13
[2017-01-04] MEDS ORDERED: ANUS25SU RECTAL (16:20)
--- NOTE | 2017-01-04 16:28 | HHI.DCPOC ---
Discharge Care Plan Diagnosis: (1) GI bleed Goals to Promote Your Health * To prevent worsening of your condition and complications * To maintain your health at the optimal level Directions to Meet Your Goals Take your medications as prescribed Follow your dietary instruction Follow activity as directed Keep your appointments as scheduled Take your immunizations and boosters as scheduled If your symptoms worsen call your PCP, if no PCP go to Urgent Care Center or Emergency Room Smoking is Dangerous to Your Health. Avoid second hand smoke Call the 24-hour hour crisis hotline for domestic abuse at Dahiana Ramírez Jan 04, 2017 16:28
[2017-01-04 16:29] VITALS: BP 127/60; PULSE 76; RESP 20; TEMP 96.9; O2SAT 96
--- NOTE | 2017-01-04 21:44 | MB ---
cc: HAWK CHRISTIANSEN M.D., BEATRICE S. M.D. CARBIENER, PAMELA DATE OF CONSULTATION: 01/04/2017 REASON FOR CONSULTATION: Rectal bleeding. HISTORY OF PRESENT ILLNESS Ms. Peña is a 31 year-old female who had a long history of intermittent rectal bleeding, always felt to be from her hemorrhoids. Recently she has had more bleeding with increased frequency and intensity for the last several weeks. She was seen in [place] in the emergency room and referred for GI workup. Outpatient colonoscopy was done recently showing no other bleeding sources in the colon except for some diverticulosis which were unremarkable and then some internal hemorrhoids. The patient noted continued bleeding and has been back to the emergency room now several times with uncontrollable rectal bleeding especially after minimal ambulation and not even having a bowel movement. The patient came to the emergency room today with additional rectal bleeding and thought additional workup. She denies any nausea or vomiting. No fever. Does not feel like she is straining but feels like she has to go to the bathroom all the time with slight tenesmus type symptoms. Denies any significant constipation. No syncope. PAST MEDICAL HISTORY: 1. Endometriosis. 2. Rectal bleeding. PAST SURGICAL HISTORY: Laparoscopy for endometriosis. Inguinal hernia repair MEDICATIONS: See admitting list for medications. ALLERGIES CIPRO SHE IS A RECOVERING ADDICT AND DOES NOT WISH NARCOTICS. SOCIAL HISTORY: She stopped smoking six years ago. She denies any alcohol use. No drug use since 2009. FAMILY HISTORY Unknown. PERTINENT PHYSICAL A very pleasant thin female in no acute distress. Abdomen was very soft. No distension. No rebound or guarding. No masses. Anal inspection reveals quite a bit of blood staining to the anoderm and buttock area. Fairly benign external hemorrhoidal tags, no obvious fissures or fistula. Digital exam revealed some tenderness but good adequate lumen size. No blood in the vault and no pelvic masses or mucosal irritation or irregularity, very little stool. LABORATORY FINDINGS Hemoglobin was 14.2, hematocrit 41.3, platelet count 170,000. Electrolytes remarkable for a BUN of 8, creatinine of 0.76. Urinalysis was pretty unremarkable, prior CT scan was reviewed showing no sign of a pelvic mass or bowel wall thickening. IMPRESSION The patient is a 31 year-old female with continued bleeding, presumed secondary to hemorrhoidal etiology. Discussed with the patient. She presently wishes to go home and possibly continue outpatient workup, try some HC suppositories at night time, continue stool softener, discussed cleaning technique and avoid straining. Will see back again in the office in the next day or two for possible EUA, and either hemorrhoidectomy or possible ligation therapy. MD CASIE Stein/PAULA /7:52 PM /9:28 PM
== END 2017-01-04 18:10 | disposition home or self-care (01) ==
LOC: NEPD 09:28 → NEDA 12:46 → NEPGCP 14:31
PROVIDERS: ADMIT Hospitalist; ATTEND Hospitalist
DX: K92.2 Gastrointestinal hemorrhage, unspecified (principal); K64.1 Second degree hemorrhoids; K57.30 Diverticulosis of large intestine without perforation or abscess without bleeding; R42 Dizziness and giddiness; R10.32 Left lower quadrant pain; I49.8 Other specified cardiac arrhythmias; Z87.891 Personal history of nicotine dependence
CPT/HCPCS: 46930; 80048; 80053; 81001; 84703; 85025; 93005; 96365; 96366; 96375; 96376; G0378; J1885